=== PATIENT | male | born 1995 | race Caucasian/White ===

== ENCOUNTER 2016-08-09 23:58 | Emergency (ER) | payer OTHER ==
[~2016-08-09] VITALS: Ht 167.6 cm; Wt 72.6 kg
[~2016-08-09 23:58] MED LIST: ANAPROX DS550 MG PO; MOTRIN600 MG PO; Motrin,Rufen800 MG PO; PENICILLIN VK500 MG PO; VIBRA-TAB100 MG PO
[2016-08-10 00:34] LABS: BASO % 0.3 % (0.0-1.0); HEMATOCRIT 41.2 % (42.0-52.0); HEMOGLOBIN 13.6 g/dl (14.0-18.0); LYMPH # 1.3 10*3/uL (1.3-4.4); LYMPH % 13.5 % (27.0-41.0); MEAN CELL VOLUME 83.9 fl (80.0-94.0); MEAN CORPUSCULAR HGB 27.7 pg (27.0-31.0); MEAN PLATELET VOLUME 11.2 fl (9.6-12.3); MONO # 0.9 10*3/uL (0.1-1.0); MONO % 9.1 % (3.0-9.0); NEUT # 7.6 10*3/uL (2.3-7.9); NEUT % 76.7 % (47.0-73.0); PLATELET COUNT AUTOMATED 160 10*3/uL (130-400); RED BLOOD COUNT 4.91 10*6/uL (4.50-5.90); RED CELL DISTRI WIDTH 12.9 % (0-14.5); WHITE BLOOD COUNT 9.9 10*3/uL (4.8-10.8)
[2016-08-10 00:47] LABS: BUN 12 mg/dl (7-24); CARBON DIOXIDE 26 mmol/L (21-32); CHLORIDE 100 mmol/L (98-107); EST GLOM FILT AFRICAN AMERICAN > 60 ml/min; GLUCOSE 110 mg/dL (65-99); POTASSIUM 3.5 mmol/L (3.5-5.1); SODIUM 138 mmol/L (136-145)
[2016-08-10] MEDS ORDERED: AMOXICILLIN500 M2 PO (01:19)
[2016-08-10] MEDS ORDERED: ZYRTEC10 MG PO (01:19)
[2016-10-11] MEDS ORDERED: NAPROSYN500 MG PO (10:50)
== END 2016-08-10 01:38 | disposition home or self-care (01) ==
LOC: ED 23:58
PROVIDERS: Emergency Medicine Emergency Medical Services
DX: J32.9 Chronic sinusitis, unspecified (principal); J02.9 Acute pharyngitis, unspecified; F17.200 Nicotine dependence, unspecified, uncomplicated

== ENCOUNTER 2017-04-04 15:11 | Emergency (ER) | payer SELFPAY ==
[~2017-04-04] VITALS: Wt 67.1 kg
[~2017-04-04 15:11] MED LIST changes: +AMOXICILLIN500 M2 PO; +NAPROSYN500 MG PO; +ZYRTEC10 MG PO
[2017-04-04] MEDS ORDERED: EC NAPROSYN500 MG PO (15:33)
[2017-04-04] MEDS ORDERED: CYCLOBENZAPRINE10 MG PO (15:40)
== END 2017-04-04 15:43 | disposition home or self-care (01) ==
LOC: ED 15:11
DX: S39.012A Strain of muscle, fascia and tendon of lower back, initial encounter (principal); F17.200 Nicotine dependence, unspecified, uncomplicated; X58.XXXA Exposure to other specified factors, initial encounter; Y93.89 Activity, other specified; Y92.89 Other specified places as the place of occurrence of the external cause; Y99.8 Other external cause status

== ENCOUNTER → 2017-10-13 | Outpatient (CLI) | payer OTHER ==
[~2017-10-13] MED LIST changes: +CYCLOBENZAPRINE10 MG PO; +EC NAPROSYN500 MG PO
[2017-10-13 19:25] LABS: HEMATOCRIT 42.7 % (42.0-52.0); HEMOGLOBIN 13.7 g/dl (14.0-18.0); MEAN CELL VOLUME 83.6 fl (80.0-94.0); MEAN CORPUSCULAR HGB 26.8 pg (27.0-31.0); MEAN CORPUSCULAR HGB CONC 32.1 g/dl (33.0-37.0); MEAN PLATELET VOLUME 10.4 fl (9.6-12.3); PLATELET COUNT AUTOMATED 190 10*3/uL (130-400); RED BLOOD COUNT 5.11 10*6/uL (4.50-5.90); RED CELL DISTRI WIDTH 13.9 % (0-14.5); WHITE BLOOD COUNT 5.8 10*3/uL (4.8-10.8)
[2017-10-13 19:40] LABS: ALBUMIN 3.8 gm/dl (3.1-4.5); ALKALINE PHOSPHATASE 118 U/L (45-117); BUN 10 mg/dl (7-24); CHLORIDE 103 mmol/L (98-107); CREATININE 0.87 mg/dL (0.70-1.30); POTASSIUM 3.9 mmol/L (3.5-5.1); SGOT/AST 58 IU/L (3-35); SGPT/ALT 141 U/L (12-78); SODIUM 140 mmol/L (136-145); T3 UPTAKE 40 % (31-39); THYROXINE (T4) TOTAL 10.7 ug/dl (4.5-12.1); TOTAL PROTEIN 7.6 gm/dL (6.4-8.2)
[2017-10-13 19:48] LABS: ATYPICAL LYMPHS 8 % (0-0); PLATELET SUFFICIENCY NORMAL (NORMAL); THYROID STIM HORMONE (HS) 0.709 uIU/ml (0.358-4.75); TOTAL CELLS COUNTED 100 #CELLS
[2017-10-13 20:07] LABS: VITAMIN D, 25-HYDROXY 8.5 ng/mL (30-100)
[2017-10-15 09:03] LABS: PROGESTERONE 004317 0.2 ng/mL (0.0-0.5)
== END | disposition home or self-care (01) ==
LOC: LAB 19:06
PROVIDERS: Pediatrics
DX: Z00.00 Encounter for general adult medical examination without abnormal findings (principal)

== ENCOUNTER 2017-10-17 21:07 | Emergency (ER) | payer OTHER ==
[~2017-10-17] VITALS: Ht 175.2 cm; Wt 81.6 kg
== END 2017-10-17 21:31 | disposition home or self-care (01) ==
LOC: ED 21:07
DX: K08.89 Other specified disorders of teeth and supporting structures (principal)